=== PATIENT | male | born 1960 | race Caucasian/White ===

== ENCOUNTER 2021-08-06 10:53 | Emergency (ER) | payer OTHER, SELFPAY ==
--- NOTE | ~2021-08-06 | XR_ITS ---
EXAMINATION: XR chest 2V DATE: 08/06/2021 11:22 INDICATION: Cough and congestion TECHNIQUE: PA and lateral views of the chest are obtained. COMPARISON: 04/26/2019 FINDINGS: The lungs are free of acute opacities. Surgical changes are noted in the right upper lung z one and at the right hilum. There is no pleural effusion or pneumothorax. The cardiomediastinal silho uette is normal. There is mild thoracic spondylosis. IMPRESSION: 1. No acute cardiopulmonary abnormality. Reviewed, dictated and finalized at location B. T DISTILLER
--- NOTE | 2021-08-06 10:54 | ED.URI ---
HPI - URI/Sore Throat General Chief Complaint: Upper Respiratory Infection Stated Complaint: Cough/Chest Congestion Time Seen by Provider: 08/06/21 10:54 Source: patient and RN notes reviewed History of Present Illness HPI Narrative: Patient is a 60-year-old male who presents the urgent care with complaints of chest congestion and cough. Patient states that he has been using his inhaler for his chronic COPD however he believes it may be . Patient denies of any increase shortness of breath. Denies of any new onset of cough. Patient states that he is missing work and his boss is not happy . Patient denies of any fever, nausea, vomiting, sore throat. Denies of any chest pain. Denies of any exposures to strep or Covid. Patient has not had the Covid vaccine. No other acute complaints. No acute distress noted. Patient will have the plan of care. Some parts of this dictation were generated by voice recognition software and may contain typographical and/or grammatical inaccuracies. Related Data Home Medications Medication Instructions Recorded Confirmed albuterol mcg INHALATION 08/06/21 warfarin 08/06/21 Allergies Allergy/AdvReac Type Severity Reaction Status Date / Time acetaminophen [From Vicodin] Allergy Rash Verified 08/06/21 11:11 amoxicillin Allergy Rash Verified 08/06/21 11:10 hydrocodone [From Vicodin] Allergy Rash Verified 08/06/21 11:11 shellfish derived Allergy Rash Verified 08/06/21 11:11 Review of Systems Review of Systems: CONSTITUTIONAL: Denies fever, chills, or sweats. EYES: Denies visual changes, redness, or discharge. ENT: Denies rhinorrhea, congestion, sore throat, or otalgia. CARDIOVASCULAR: Denies chest pain, palpitations, or edema. RESPIRATORY: Reports of acute on chronic cough without dyspnea. Reports of chest congestion GASTROINTESTINAL: Denies abdominal pain, nausea, vomiting, or diarrhea. GENITOURINARY: Denies dysuria or hematuria. SKIN: Denies rash or itching. MUSCULOSKELETAL: Denies back pain, joint pain, or myalgia. NEUROLOGIC: Denies headache, numbness, or weakness. All other systems reviewed are negative, except as documented in HPI. PMFSH Comments At the time of my signature, I reviewed and agree with the nursing past medical, surgical, social, and family history. There is no relevant family history pertinent to the patient complaint. Exam Narrative: GENERAL: This is a well-nourished, well-developed patient, in no apparent distress. HEAD: normocephalic, atraumatic. EYES: PERRL. Sclera clear/white. Vision is grossly intact. EARS: External ears normal, auditory canals clear and without drainage, TMs normal without perforation. Hearing grossly intact. NOSE: External nose normal with no obvious nasal discharge, nares without redness, clear rhinorrhea. THROAT: Mucous membranes moist.. Moderate erythema noted posterior pharynx with moderate postnasal drainage. NECK: Neck supple CARDIOVASCULAR: Regular rate and rhythm without murmurs, gallops, or rubs. RESPIRATORY: Clear to auscultation. Breath sounds equal bilaterally. No wheezes, rales, or rhonchi. SKIN: warm, intact with no suspicious lesions or rash, good texture and turgor. NEURO: awake, alert, and oriented to person, place and time. There were no obvious focal neurologic abnormalities. EXTREMITIES: No clubbing, cyanosis, or edema. Course Vital Signs Vital signs: Vital Signs Temperature 98.7 F 08/06/21 11:13 Pulse Rate 106 H 08/06/21 11:13 Respiratory Rate 20 08/06/21 11:13 Blood Pressure 133/90 08/06/21 11:13 Pulse Oximetry 98 08/06/21 11:13 Temperature 98.7 F 08/06/21 11:13 Pulse Rate 106 H 08/06/21 11:13 Respiratory Rate 20 08/06/21 11:13 Blood Pressure 133/90 08/06/21 11:13 Pulse Oximetry 98 08/06/21 11:13 Reviewed MDM - URI/Sore Throat MDM Narrative Medical decision making narrative: Reviewed x-ray results with the patient. He is aware that x-ray was negative for any abno
[2021-08-06 11:13] VITALS: BP 133/90; PULSE 106; RESP 20; TEMP 37.1; O2SAT 98
== END 2021-08-06 12:20 | disposition home or self-care (01) ==
PROVIDERS: Emergency Provider Nurse Practitioner Family
DX: J44.9 Chronic obstructive pulmonary disease, unspecified (principal)
CPT/HCPCS: 71046; 99213; G0463

== ENCOUNTER 2023-01-10 15:48 | Emergency (ER) | payer OTHER, SELFPAY ==
--- NOTE | ~2023-01-10 | XR_ITS ---
[XR ribs RT 2V w CXR 2V ] INDICATION: Right rib pain status post fall TECHNIQUE: Frontal projection of the upper right ribs, frontal projection of the lower right ribs, ob lique projection of all the right ribs, frontal inspiratory chest x-ray for interpretation. FINDINGS: There are surgical changes in the right hilum and right upper thorax. There is evidence for chronic granulomatous disease. There are no displaced rib fractures identified. There are no soft t issue abnormality seen. The lungs are clear. There is an IVC filter present in the abdomen. Nonspec ific air-fluid levels are present in the upper abdomen. IMPRESSION: 1:No acute displaced rib fractures. Reviewed, dictated and finalized at location A.
--- NOTE | ~2023-01-10 | CT_ITS ---
EXAMINATION: 1. CT facial & cervical spine wo DATE: 01/10/2023 17:08 INDICATION: Head injury with right-sided jaw pain post fall TECHNIQUE: 1. Computed tomography (CT) of the maxillofacial region and of the cervical spine were performed with out intravenous contrast. Sagittal and coronal reconstructions of both regions were obtained. Automat ed exposure control and iterative reconstruction technique were employed. The dose-length product was 387.94 mGy-cm. COMPARISON: None. FINDINGS: Maxillofacial CT: Normal alignment at the bilateral temporomandibular joints. No maxillofacial fractures. Specifically the mandible, nasal bones, zygomatic arches and lowe of the orbits and paranasal sinuses are intact. Orbits are normal. Mild mucosal thickening in the left maxillary, left frontal and bilateral ethmoid sinuses. Dental Nadira along the anterior left maxillary central incisor. Maxillofacial soft tissues are unremarkable. Cervical spine CT: Alignment is normal. Vertebral body heights are normal. No fracture. Mild to moderate disc height los s at C5-C6 and C6-7 and mild disc height loss at C4-C5. Posterior disc ossified complexes and moderat e to severe bilateral uncovertebral osteoarthritis at C5-C6 and C6-7 resulting in mild central canal and bilateral mild neural foraminal stenosis at both levels. Cervical soft tissues are unremarkable. Severe emphysema with biapical pleural-parenchymal scarring, left greater than right. Few scattered c alcified pulmonary nodules consistent with old granulomatous disease. IMPRESSION: 1. No acute maxillofacial or cervical osseous abnormality. 2. Mild to moderate cervical spondylosis. 3. Severe emphysema. Reviewed, dictated and finalized at location A.
--- NOTE | ~2023-01-10 | CT_ITS ---
EXAMINATION: CT brain wo con DATE: 01/10/2023 17:01 INDICATION: Head trauma. TECHNIQUE: Computed tomography (CT) of the head was performed without intravenous contrast. The dose- length product was 605.33 mGy-cm. Automated exposure control and iterative reconstruction technique w ere employed. COMPARISON: CT dated 05/22/2009 FINDINGS: Brain parenchymal volume is normal for age. No ventriculomegaly or midline shift. Basilar c isterns are patent. No acute intracranial hemorrhage, infarction, mass or mass effect. Normal swartz-wh ite differentiation. There is intracranial atherosclerosis. There is mucosal thickening of the ethmoi d and frontal sinuses. Mastoids are pneumatized. No depressed skull fractures. IMPRESSION: 1. No acute intracranial abnormality. 2: Mild sinus disease. Reviewed, dictated and finalized at location A.
--- NOTE | ~2023-01-10 | XR_ITS ---
XR femur RT min 2V 01/10/2023 16:57 INDICATION: Right leg pain PROCEDURE: 2 views right femur COMPARISON: 01/10/2023 FINDINGS: Fracture, dislocation or subluxation is not identified. The soft tissues appear within norm al limits. No foreign bodies are identified. IMPRESSION: 1: NO ACUTE BONE OR JOINT ABNORMALITY IDENTIFIED. Reviewed, dictated and finalized at location A.
--- NOTE | ~2023-01-10 | XR_ITS ---
XR hip RT 2V w AP pelvis 01/10/2023 16:57 INDICATION: Right hip pain after fall PROCEDURE: 3 views right hip including AP pelvis COMPARISON: FINDINGS: Fracture, dislocation or subluxation is not identified. Pelvic rings are intact. The soft t issues appear within normal limits. No foreign bodies are identified. IMPRESSION: 1: NO ACUTE BONE OR JOINT ABNORMALITY IDENTIFIED. Reviewed, dictated and finalized at location A.
[2023-01-10 15:54] VITALS: BP 135/77; PULSE 89; RESP 18; TEMP 37.2; O2SAT 98
[2023-01-10] MEDS: MORPHINE SULFATE (*CRX) 2 MG/ML INJ IV PUSH (16:34)
[2023-01-10 16:47] LABS: Basophils Absolute Auto 0.1 K/mm3 (0.0-0.1); Basophils Percent Auto 0.6 % (0.2-1.2); Eosinophils Absolute Auto 0.2 K/mm3 (0-0.3); Eosinophils Percent Auto 1.7 % (0-4.4); Hematocrit 47.6 % (42.0-52.0); Hemoglobin 16.4 g/dL (14.0-18.0); Immature Granulocyte Absolute 0.03 K/mm3 (0.00-0.031); Immature Granulocyte Percent A 0.3 % (0-0.5); Lymphocytes Absolute Auto 1.38 K/mm3 (0.9-3.2); Mean Corpuscular HGB Conc 34.5 g/dl (32-36); Mean Corpuscular Hemoglobin 33.5 pg (26-34); Mean Corpuscular Volume 97.3 fl (80-100); Mean Platelet Volume 8.9 fl (7.4-10.4); Monocytes Absolute Auto 0.7 K/mm3 (0.1-0.6); Monocytes Percent Auto 6.3 % (2.6-8.5); Neutrophils Absolute Auto 8.3 K/mm3 (1.3-6.7); Neutrophils Percent Auto 78.1 % (45.5-73.1); Platelet Count Result 186 k/mm3 (150-375); Red Blood Count 4.89 M/mm3 (4.6-6.20); Red Cell Distribution Width 14.4 % (11.5-14.5); White Blood Count 10.6 K/mm3 (4.5-10.0)
[2023-01-10 16:57] LABS: INR 3.1; Prothrombin Time 30.9 Seconds (11.1-14.7)
[2023-01-10 16:58] LABS: Partial Thromboplastin Time 40.4 SECONDS (22.3-36.8)
[2023-01-10 16:59] LABS: Alanine Aminotransferase 20 U/L (6-50); Albumin Level 4.2 g/dL (3.5-5.1); Alkaline Phosphatase 75 U/L (38-126); Anion Gap 8 mmol/L (8-16); Aspartate Amino Transferase 30 U/L (17-59); Bilirubin,Total 0.5 mg/dL (0.2-1.3); Blood Urea Nitrogen 13 mg/dL (9-20); Calcium 8.6 mg/dL (8.4-10.2); Carbon Dioxide 19 mmol/L (22-30); Chloride 105 mmol/L (98-107); Estimated CRCL calculation 76 ml/min; Estimated Glomerular Filt Rate > 60; Glucose 122 mg/dL (65-110); Potassium 3.8 mmol/L (3.4-5.0); Sodium 132 mmol/L (137-145)
[2023-01-10] MEDS: fentaNYL CITRATE INJ (*CRX) 100 MCG/2 ML VIAL 50 MCG IV PUSH (18:10)
--- NOTE | 2023-01-10 18:17 | ED.FALL ---
HPI - Fall General Chief Complaint: Fall Stated Complaint: fall off semi, R jaw R hip and R leg pain Time Seen by Provider: 01/10/23 15:59 History of Present Illness HPI Narrative: Patient is a 62-year-old male who presents ER with pain status post fall. He is walking on his semi when he fell down 4 feet striking his right thigh/chest wall/jaw head while he fell. He is anticoagulated on Coumadin due to history of factor V Leiden mutation causing PE and DVT in the past. He had no loss of consciousness. No fevers or chills or sweats. He has some pain with ambulating but can walk with a limp. Patient feels like he can close his jaw and his teeth line up appropriately. He does have pain with chewing. Related Data Home Medications Medication Instructions Recorded Confirmed albuterol 90 mcg/actuation aerosol mcg inhalation 08/06/21 inhaler warfarin 2 mg tablet 08/06/21 Allergies Allergy/AdvReac Type Severity Reaction Status Date / Time acetaminophen [From Vicodin] Allergy Rash Verified 01/10/23 16:11 amoxicillin Allergy Rash Verified 01/10/23 16:11 hydrocodone [From Vicodin] Allergy Rash Verified 01/10/23 16:11 shellfish derived Allergy Rash Verified 01/10/23 16:11 Sulfa (Sulfonamide Allergy Rash Verified 01/10/23 16:11 Antibiotics) Review of Systems Review of Systems: All systems reviewed & are unremarkable except as noted in HPI and below Constitutional: Constitutional: Denies chills, Denies fatigue and Denies fever(s) Eyes: Eyes: Denies change in vision ENT: Comments: Right jaw pain Cardiovascular: Cardiovascular: Denies chest pain, Denies rapid heart rate and Denies radiating jaw, neck or arm pain Comments: Right chest wall pain Respiratory: Respiratory: Denies cough and Denies dyspnea Gastrointestinal: Gastrointestinal: Denies abdominal pain, Denies nausea and Denies vomiting Musculoskeletal: Musculoskeletal: Denies back pain, Reports arthralgias (Right hip pain) and Denies joint swelling Comments: Right thigh pain Integumentary/Breasts: Skin/Breast: Reports erythema and Denies rash Comments: Abrasion right thigh PMFSH Past Medical History Medical History (Updated 01/10/23 @ 18:23 by Jose Sarkar MD) COPD (chronic obstructive pulmonary disease) DVT (deep venous thrombosis) Factor V Leiden mutation Pulmonary embolism Social History Social History (Updated 01/10/23 @ 18:21 by Jose Sarkar MD) Social History: History of tobacco abuse Exam Narrative: GENERAL: Well-appearing, well-nourished, and in no acute distress. HEAD: Normocephalic, atraumatic. ENT: Mucous membranes moist. Swelling and tenderness to right lower jaw. Normal dentition. NECK: Supple. CHEST: Clear to auscultation. No respiratory distress. Tender palpation right lateral chest wall infra axillary without bruising. HEART: Regular rate and rhythm. Normal peripheral pulses. ABDOMEN: Soft, nontender, nondistended. EXTREMITIES: Normal range of motion. No edema. SKIN: Warm, dry, no rash. Abrasion right mid/lateral thigh. NEURO: NAlert and oriented x3. PSYCH: Normal mood and affect. Course Course Emergency Course: Patient informed of imaging results. No improvement in pain with morphine so he will be given some fentanyl. Reports he cannot take Vicodin but is willing to take Percocet at home. He has been advised not to operate his semi while taking Percocet and he is verbalized understanding of this. Vital Signs Vital signs: Vital Signs Temperature 99 F 01/10/23 15:54 Pulse Rate 89 01/10/23 15:54 Respiratory Rate 18 01/10/23 15:54 Blood Pressure 135/77 01/10/23 15:54 Pulse Oximetry 98 01/10/23 15:54 Oxygen Delivery Room Air 01/10/23 15:54 Temperature 99 F 01/10/23 15:54 Pulse Rate 89 01/10/23 15:54 Respiratory Rate 18 01/10/23 15:54 Blood Pressure 135/77 01/10/23 15:54 Pulse Oximetry 98 01/10/23 15:54 Oxygen Delivery Room Air 01/10/23 15:54
[2023-01-10 18:18] VITALS: BP 158/96; PULSE 75; RESP 18; O2SAT 99
== END 2023-01-10 18:49 | disposition home or self-care (01) ==
LOC: ANHED 18:34
PROVIDERS: Emergency Provider Emergency Medicine
DX: S20.211A Contusion of right front wall of thorax, initial encounter (principal); S00.83XA Contusion of other part of head, initial encounter; S70.311A Abrasion, right thigh, initial encounter; D68.51 Activated protein C resistance; J43.9 Emphysema, unspecified; Z86.718 Personal history of other venous thrombosis and embolism; Z86.711 Personal history of pulmonary embolism; Z87.891 Personal history of nicotine dependence; Z79.01 Long term (current) use of anticoagulants; M47.812 Spondylosis without myelopathy or radiculopathy, cervical region; J32.9 Chronic sinusitis, unspecified; W17.89XA Other fall from one level to another, initial encounter
CPT/HCPCS: 36415; 70450; 70486; 71046; 71100; 72125; 73502; 73552; 80053; 85025; 85610; 85730; 96374; 96375; 99284; J2270; J3010

== ENCOUNTER 2023-05-02 10:23 | Emergency (ER) | payer OTHER, SELFPAY ==
--- NOTE | ~2023-05-02 | XR_ITS ---
EXAMINATION: XR chest 2V DATE: 05/02/2023 10:43 INDICATION: Cough. TECHNIQUE: Frontal and lateral views of the chest were obtained. COMPARISON: Chest 2 views 01/10/2023, chest CT 02/10/2012 FINDINGS: There are lucencies in the lungs, consistent with emphysema. There are staple lines in righ t lung. There is mild scarring in right midlung zone and at the lung apices. Calcified left lung nodu les are consistent with old granulomatous disease. No pleural effusion or pneumothorax. The heart siz e is normal. There is mild chronic anterior wedging of T12 vertebral body. IMPRESSION: 1. Emphysema. 2. Mild scarring in right midlung zone and at the lung apices. Reviewed, dictated and finalized at location A.
[2023-05-02 10:28] VITALS: BP 138/76; PULSE 109; RESP 20; TEMP 36.7; O2SAT 100
--- NOTE | 2023-05-02 10:44 | ED.URI ---
HPI - URI/Sore Throat General Chief Complaint: Upper Respiratory Infection Stated Complaint: Cough Time Seen by Provider: 05/02/23 10:44 Source: patient Mode of arrival: ambulatory Limitations: no limitations History of Present Illness HPI Narrative: 62-year-old male with history of emphysema presents with complaint of cough. Reports chest tightness but no shortness breath. Difficult to take deep breath. Patient has albuterol inhaler that he normally uses approximately once a month but has been using more often for the past several days. Patient smokes 1 pack of cigarettes a day. Reports that he was at work 5 days ago and sway being dust was very bad. This is when he started coughing. Afebrile. All systems reviewed and negative except as noted above. Related Data Home Medications Medication Instructions Recorded Confirmed warfarin 2 mg tablet 3 mg PO DAILY 08/06/21 05/02/23 Allergies Allergy/AdvReac Type Severity Reaction Status Date / Time acetaminophen [From Vicodin] Allergy Rash Verified 05/02/23 10:40 amoxicillin Allergy Rash Verified 05/02/23 10:40 hydrocodone [From Vicodin] Allergy Rash Verified 05/02/23 10:40 shellfish derived Allergy Rash Verified 05/02/23 10:40 Sulfa (Sulfonamide Allergy Rash Verified 05/02/23 10:40 Antibiotics) Review of Systems Review of Systems: CONSTITUTIONAL: Denies fever, chills, or sweats. EYES: Denies visual changes, redness, or discharge. ENT: Denies rhinorrhea, congestion, sore throat, or otalgia. CARDIOVASCULAR: Denies chest pain, palpitations, or edema. RESPIRATORY: Reports cough, chest tightness. Denies dyspnea. GASTROINTESTINAL: Denies abdominal pain, nausea, vomiting, or diarrhea. GENITOURINARY: Denies dysuria or hematuria. SKIN: Denies rash or itching. MUSCULOSKELETAL: Denies back pain, joint pain, or myalgia. NEUROLOGIC: Denies headache, numbness, or weakness. PSYCHIATRIC: Denies anxiety or depression. All other systems reviewed are negative, except as documented in HPI. [facility] Past Medical History Medical History (Updated 05/02/23 @ 11:31 by Yulissa Romero NP) COPD (chronic obstructive pulmonary disease) DVT (deep venous thrombosis) Factor V Leiden mutation Pulmonary embolism Social History Social History (Updated 01/10/23 @ 18:21 by Jose Sarkar MD) Social History: History of tobacco abuse Comments At time of signature, agree with nursing past medical, surgical, social and family history. There is no relevant family history pertinent to the presenting complaint. Exam Narrative: GENERAL: This is a well-nourished, well-developed patient, in no apparent distress. HEAD: normocephalic, atraumatic. EYES: PERRL. Sclera clear/white. Vision is grossly intact. EARS: External ears normal, auditory canals clear and without drainage, TMs normal without perforation. Hearing grossly intact. NOSE: External nose normal with no obvious nasal discharge, nares without redness, no rhinorrhea. THROAT: Mucous membranes moist, posterior pharynx clear. NECK: Neck supple, non-tender without lymphadenopathy, masses or thyromegaly. CARDIOVASCULAR: Regular rate and rhythm without murmurs, gallops, or rubs. RESPIRATORY: Decreased throughout all lung matias. No wheezes, rales, or rhonchi. SKIN: warm, Dry, intact with no suspicious lesions or rash, good texture and turgor. NEURO: awake, alert, and oriented to person, place and time. There were no obvious focal neurologic abnormalities. EXTREMITIES: No joint tenderness, effusion, or edema noted. Course Course Level of Care: Express Care Visit Reevaluation(s) Reevaluation #1: pt unable to complete entire breathing treatment. stated that it wore him out . did report chest tightness improved and easier to take full breath. Vital Signs Vital signs: Vital Signs Temperature 36.7 C 05/02/23 10:28 Pulse Rate 109 H 05/02/23 10:28 Respiratory Rate 20 05/02/23 10:28 Blood Pressure 138/76
[2023-05-02] MEDS: predniSONE 20 MG TABLET 40 MG PO (11:00)
[2023-05-02] MEDS: IPRATROPIUM BR 0.02% INH SOLN 0.5 MG/2.5 ML VIAL INHALATION (11:01)
[2023-05-02] MEDS: ALBUTEROL SULFATE NEB 2.5 MG/3 ML INH INHALATION (11:01)
[2023-05-02 11:25] VITALS: PULSE 82; RESP 20; O2SAT 99
== END 2023-05-02 11:33 | disposition home or self-care (01) ==
PROVIDERS: Emergency Provider Nurse Practitioner Family
DX: J43.9 Emphysema, unspecified (principal); R05.1 Acute cough; J44.9 Chronic obstructive pulmonary disease, unspecified; D68.51 Activated protein C resistance; Z86.718 Personal history of other venous thrombosis and embolism; Z86.711 Personal history of pulmonary embolism
CPT/HCPCS: 71046; 94640; 99213; G0463; J7512

== ENCOUNTER 2023-05-05 17:05 | Emergency (ER) | payer OTHER, SELFPAY ==
--- NOTE | ~2023-05-05 | XR_ITS ---
EXAMINATION: XR chest 2V Exam Date/Time: 05/05/2023 18:30 CDT HISTORY: cough and SOB Comparison: 05/02/2023. RESULT: Lines, tubes, and devices: Suture lines in the right hemithorax. Lungs and pleura: Clear. Cardiomediastinal silhouette: Stable. Other: No acute osseous or upper abdominal finding. IMPRESSION: No acute cardiopulmonary process. Reviewed, dictated and finalized at location K.
[2023-05-05 17:09] VITALS: BP 136/82; PULSE 106; RESP 16; TEMP 36.7; O2SAT 96
--- NOTE | 2023-05-05 17:14 | ECG_ITS ---
Measurements Intervals [place] Rate: 99 P: 74 AK: 141 QRS: -16 QRSD: 106 T: 65 QT: 342 QTc: 440 Interpretive Statements SINUS RHYTHM POSSIBLE LEFT ATRIAL ENLARGEMENT [-0.1mV P WAVE IN V1/V2] NO PREVIOUS ECG AVAILABLE FOR COMPARISON Electronically Signed On 05-06-2023 14:23:17 CDT by Krystyna Clarke M.D.
[2023-05-05 17:41] LABS: Basophils Percent Auto 0.2 % (0.2-1.2); Hematocrit 48.3 % (42.0-52.0); Hemoglobin 16.7 g/dL (14.0-18.0); Immature Granulocyte Absolute 0.04 K/mm3 (0.00-0.031); Immature Granulocyte Percent A 0.4 % (0-0.5); Lymphocytes Absolute Auto 0.37 K/mm3 (0.9-3.2); Lymphocytes Percent Auto 3.6 % (18.3-44.2); Mean Corpuscular HGB Conc 34.6 g/dl (32-36); Mean Corpuscular Hemoglobin 33.9 pg (26-34); Mean Corpuscular Volume 98.2 fl (80-100); Mean Platelet Volume 8.5 fl (7.4-10.4); Monocytes Absolute Auto 0.2 K/mm3 (0.1-0.6); Monocytes Percent Auto 1.6 % (2.6-8.5); Neutrophils Absolute Auto 9.8 K/mm3 (1.3-6.7); Neutrophils Percent Auto 94.2 % (45.5-73.1); Platelet Count Result 156 k/mm3 (150-375); Red Blood Count 4.92 M/mm3 (4.6-6.20); Red Cell Distribution Width 14.2 % (11.5-14.5); White Blood Count 10.4 K/mm3 (4.5-10.0)
[2023-05-05 17:50] LABS: Alanine Aminotransferase 22 U/L (6-50); Albumin Level 4.3 g/dL (3.5-5.1); Alkaline Phosphatase 73 U/L (38-126); Anion Gap 14 mmol/L (8-16); Aspartate Amino Transferase 28 U/L (17-59); Bilirubin,Total 0.3 mg/dL (0.2-1.3); Blood Urea Nitrogen 14 mg/dL (9-20); Calcium 9.2 mg/dL (8.4-10.2); Carbon Dioxide 17 mmol/L (22-30); Chloride 105 mmol/L (98-107); Estimated CRCL calculation 62 ml/min; Estimated Glomerular Filt Rate > 60; Glucose 169 mg/dL (65-110); Potassium 3.9 mmol/L (3.4-5.0); Sodium 136 mmol/L (137-145)
[2023-05-05 18:22] VITALS: O2SAT 97
--- NOTE | 2023-05-05 19:04 | ED.GENADULT ---
HPI - General Adult General Chief complaint: Shortness of Breath/Dyspnea Stated complaint: cough Time Seen by Provider: 05/05/23 18:47 Source: patient Mode of arrival: ambulatory Limitations: no limitations History of Present Illness HPI narrative: This is a 62-year-old male with PMH of COPD who presents to the ED with chief complaint of shortness of breath and cough for the past 5 days. He was seen in urgent care and given steroids, albuterol but was told he did not have a pneumonia with a negative chest x-ray. Patient states that he is still having a productive cough with clear sputum. He reports a lot of congestion and sinus pressure as well. States he is not overly short of breath but does feel like he wheezes at times. Denies fevers, chills chest pain, leg swelling, abdominal pain, nausea, vomiting, urinary problems. Related Data Home Medications Medication Instructions Recorded Confirmed warfarin 2 mg tablet 3 mg PO DAILY 08/06/21 05/02/23 Allergies Allergy/AdvReac Type Severity Reaction Status Date / Time acetaminophen [From Vicodin] Allergy Rash Verified 05/05/23 17:13 amoxicillin Allergy Rash Verified 05/05/23 17:13 hydrocodone [From Vicodin] Allergy Rash Verified 05/05/23 17:13 shellfish derived Allergy Rash Verified 05/05/23 17:13 Sulfa (Sulfonamide Allergy Rash Verified 05/05/23 17:13 Antibiotics) Review of Systems Review of Systems: All systems as dictated in [facility] Past Medical History Medical History (Updated 05/06/23 @ 00:05 by Malinda Bronson) COPD (chronic obstructive pulmonary disease) DVT (deep venous thrombosis) Factor V Leiden mutation Pulmonary embolism Social History Social History (Updated 01/10/23 @ 18:21 by Jose Sarkar MD) Social History: History of tobacco abuse Exam Narrative: GENERAL: Well-appearing, well-nourished, and in no acute distress. HEAD: Normocephalic, atraumatic. EYES: PERRLA and EOMI. ENT: Nares clear, no rhinorrhea or epistaxis. Mucous membranes moist. Oropharynx without tonsillar hypertrophy exudate or other lesions. NECK: Supple. No adenopathy or masses. CHEST: No respiratory distress. No accessory muscle use. No rales heard. Faint end expiratory wheezes. Sats 97% on room air. Speaking in full sentences. HEART: Regular rate and rhythm. No murmur heard. Normal peripheral pulses. ABDOMEN: Soft, nontender, nondistended, normal active bowel sounds. MSK: Normal range of motion. No edema. SKIN: Warm, dry, no rash. NEURO: Alert and oriented x3. No focal deficits. PSYCH: Normal mood and affect. Course Course Emergency Course: Reevaluation 2025: Did well with walking desaturation test. Did not go below 95%. Vital Signs Vital signs: Vital Signs Temperature 98.1 F 05/05/23 17:09 Pulse Rate 106 H 05/05/23 17:09 Respiratory Rate 16 05/05/23 17:09 Blood Pressure 136/82 05/05/23 17:09 Pulse Oximetry 96 05/05/23 17:09 Oxygen Delivery Room Air 05/05/23 17:09 Temperature 98.1 F 05/05/23 17:09 Pulse Rate 81 05/05/23 21:43 Respiratory Rate 15 05/05/23 21:43 Blood Pressure 147/90 H 05/05/23 21:43 Pulse Oximetry 96 05/05/23 21:43 Oxygen Delivery Room Air 05/05/23 18:22 Medical Decision Making MDM Narrative Medical decision making narrative: This is a 62-year-old male who presents to the ED with chief complaint of cough, congestion and shortness of breath for the past 5 days. Vitals show initial slight tachycardia but this normalized over the course of his visit. Exam reveals some end expiratory wheezes but otherwise respiratory exam is intact. Satting 97% on room air. He did very well with the walking desaturation test and did not go below 95% on room air. Chest x-ray is negative. Lab work reveals slight leukocytosis with apparent left shift. CMP is largely unremarkable. Symptoms and presentation are consistent with COPD exacerbation/pneumonia. This may be due to viral up
[2023-05-05 19:31] VITALS: BP 138/88; PULSE 88; RESP 14; O2SAT 95
[2023-05-05] MEDS: levoFLOXacin 750 MG/D5W 150 ML 750 MG/150 ML BAG 100 MG IVPB (19:35)
[2023-05-05] MEDS: methylPREDNISolone SOD SUCC 125 MG VIAL IV PUSH (19:36)
[2023-05-05 19:55] LABS: D Dimer < 0.27 ug/mL (<0.48)
[2023-05-05 21:43] VITALS: BP 147/90; PULSE 81; RESP 15; O2SAT 96
--- NOTE | 2023-05-13 06:17 | PC.NURSE ---
LEVOFLOXACIN STOPPED BY THIS RN ON 05/05/23 @2015
== END 2023-05-05 21:45 | disposition home or self-care (01) ==
PROVIDERS: Student in an Organized Health Care Education/Training Program; Emergency Provider Physician Assistant
DX: J44.1 Chronic obstructive pulmonary disease with (acute) exacerbation (principal); D68.51 Activated protein C resistance; Z86.718 Personal history of other venous thrombosis and embolism; Z86.711 Personal history of pulmonary embolism; R94.31 Abnormal electrocardiogram [ECG] [EKG]
CPT/HCPCS: 36415; 71046; 80053; 85025; 85380; 93005; 96365; 96375; 99284; J1956; J2930

== ENCOUNTER 2023-11-17 11:33 | Emergency (ER) | payer OTHER, SELFPAY ==
[2023-11-17 11:50] VITALS: BP 136/79; PULSE 84; RESP 18; TEMP 36.7; O2SAT 98
--- NOTE | 2023-11-17 11:53 | ED.URI ---
HPI - URI/Sore Throat General Chief Complaint: Upper Respiratory Infection <Dory Valle APRN - Last Filed: 11/17/23 14:48> Stated Complaint: Cough <Dory Valle APRN - Last Filed: 11/17/23 14:48> Time Seen by Provider: 11/17/23 11:53 <Dory Valle APRN - Last Filed: 11/17/23 14:48> Source: patient, RN notes reviewed and old records reviewed <Dory Valle APRN - Last Filed: 11/17/23 14:48> Mode of arrival: ambulatory <Dory Valle APRN - Last Filed: 11/17/23 14:48> Limitations: no limitations <Dory Valle APRN - Last Filed: 11/17/23 14:48> History of Present Illness HPI Narrative: 63-year-old male to [facility] with complaint of cough for nearly 2 weeks. Patient endorses history emphysema, COPD, multiple MIs, 2 DVTs, 2 PEs, factor 5, and 1 [id number] smoker. Patient states cough has been productive occasionally with white sputum with. Patient denies fever, chest pain, dizziness, shortness of breath. Patient has attempted to treat with [id number] cold medication with no relief. Patient able to tolerate fluids by mouth. <Dory Valle APRN - Last Filed: 11/17/23 14:48> Related Data Home Medications: Home Medications Medication Instructions Recorded Confirmed warfarin 2 mg tablet 3 mg PO DAILY 08/06/21 11/17/23 <Dory Valle APRN - Last Filed: 11/17/23 14:48> Allergies/Adverse Reactions: Allergies Allergy/AdvReac Type Severity Reaction Status Date / Time acetaminophen [From Vicodin] Allergy Rash Verified 05/05/23 17:13 amoxicillin Allergy Rash Verified 05/05/23 17:13 hydrocodone [From Vicodin] Allergy Rash Verified 05/05/23 17:13 shellfish derived Allergy Rash Verified 05/05/23 17:13 Sulfa (Sulfonamide Allergy Rash Verified 05/05/23 17:13 Antibiotics) <Dory Valle APRN - Last Filed: 11/17/23 14:48> Review of Systems Review of Systems: All systems reviewed & are unremarkable except as noted in HPI and below <Dory Valle APRN - Last Filed: 11/17/23 14:48> Constitutional: Constitutional: Reports no additional constitutional complaints, Denies body ache(s), Denies chills, Denies fatigue and Denies headache(s) <Dory Valle APRN - Last Filed: 11/17/23 14:48> Eyes: Eyes: Reports no additional eye complaints <Dory Valle APRN - Last Filed: 11/17/23 14:48> ENT: Reports system reviewed and no additional complaints, except as documented, Denies ear discharge, Denies headache(s) and Reports post nasal drip <Dory Valle APRN - Last Filed: 11/17/23 14:48> Cardiovascular: Cardiovascular: Reports no additional cardiovascular complaints, Denies chest pain and Denies dyspnea <Dory Valle APRN - Last Filed: 11/17/23 14:48> Respiratory: Respiratory: Reports no additional respiratory complaints, Reports cough, Denies excessive phlegm production, Denies pain on inspiration, Denies pain with cough and Denies dyspnea <Dory Valle APRN - Last Filed: 11/17/23 14:48> Musculoskeletal: Musculoskeletal: Reports no additional musculoskeletal complaints <Dory Valle APRN - Last Filed: 11/17/23 14:48> Neurologic: Reports system reviewed and no additional complaints, except as documented <Dory Valle APRN - Last Filed: 11/17/23 14:48> Psychiatric: Psychiatric: Reports no additional psychiatric complaints <Dory Valle APRN - Last Filed: 11/17/23 14:48> [facility] Past Medical History Medical History: Medical History (Updated 11/17/23 @ 12:12 by Dory Valle APRN) COPD (chronic obstructive pulmonary disease) DVT (deep venous thrombosis) Factor V Leiden mutation Pulmonary embolism <Dory Valle APRN - Last Filed: 11/17/23 14:48> Social History Social History: Social History (Updated 01/10/23 @ 18:21 by Jose Sarkar MD) Social History: History of tobacco
== END 2023-11-17 12:17 | disposition home or self-care (01) ==
PROVIDERS: Emergency Provider Nurse Practitioner Family
DX: J40 Bronchitis, not specified as acute or chronic (principal); J06.9 Acute upper respiratory infection, unspecified; J43.9 Emphysema, unspecified; I25.2 Old myocardial infarction; D68.51 Activated protein C resistance; F17.210 Nicotine dependence, cigarettes, uncomplicated; Z79.01 Long term (current) use of anticoagulants; Z86.711 Personal history of pulmonary embolism; Z86.718 Personal history of other venous thrombosis and embolism
CPT/HCPCS: 99213; G0463

== ENCOUNTER 2024-01-16 18:00 | Outpatient (RCR) | payer OTHER, SELFPAY | END 2024-01-19 17:01 | disposition home or self-care (01) | LOC: ANHCPREHAB 18:00 | PROVIDERS: Visit Provider Internal Medicine | DX: I25.2 Old myocardial infarction (principal); Z95.5 Presence of coronary angioplasty implant and graft | CPT/HCPCS: 93798 ==

== ENCOUNTER 2024-12-06 08:29 | Emergency (ER) | payer OTHER, SELFPAY ==
--- NOTE | ~2024-12-06 | XR_ITS ---
EXAMINATION: [id number] DATE: 12/06/2024 09:12 INDICATION: Right rib pain. TECHNIQUE: A frontal view of the chest and 2 views on 4 radiographs of the right ribs were obtained. COMPARISON: Chest 2 views 10/04/2024, right rib radiographs 01/10/2023 FINDINGS: There is mild scarring at the lung apices. There are staple lines in right lung. Calcified lung nodules are consistent with old granulomatous disease. No pleural effusion or pneumothorax. The heart size is normal. There are old healed fractures of right third-fifth ribs. There is a filter in the inferior vena cava. IMPRESSION: 1. Stable mild scarring at the lung apices. 2. No acute rib fracture. Reviewed, dictated and finalized at location B.
[2024-12-06 08:34] VITALS: BP 127/71; PULSE 83; RESP 20; TEMP 36.4; O2SAT 100
--- NOTE | 2024-12-06 08:43 | ED_ITS ---
HPI - General Adult General Chief complaint: Chest Pain Stated complaint: right side chest pain Time Seen by Provider: 12/06/24 08:43 Source: patient, RN notes reviewed and old records reviewed Mode of arrival: ambulatory Limitations: no limitations History of Present Illness HPI narrative: 64-year-old male presents to the [facility] with complaints of right lower lateral to anterior rib discomfort. 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 Got worse 2 days ago when he had some increased pain. Pain is worse with movement, twisting and palpation. States when he rolls over in bed the pain is worse. denies any nausea or vomiting. Denies any shortness of breath. No pain when just sitting still. Patient reports that he is compliant with his medications Related Data Home Medications ?Medication ?Instructions ?Recorded ?Confirmed ?Last Taken ?Type apixaban 5 mg tablet (Eliquis) mg 10/04/24 10/04/24 History atorvastatin 80 mg tablet mg 12/06/24 Unknown History clopidogrel 75 mg tablet mg 12/06/24 Unknown History metoprolol succinate 25 mg mg PO 12/06/24 Unknown History tablet,extended release 24 hr omeprazole 40 mg capsule,delayed mg 12/06/24 Unknown History release Allergies Allergy/AdvReac Type Severity Reaction Status Date / Time iodine Allergy Severe Anaphylaxis Verified 10/04/24 15:04 acetaminophen (From Vicodin) Allergy Rash Verified 10/04/24 15:04 amoxicillin Allergy Rash Verified 10/04/24 15:04 hydrocodone (From Vicodin) Allergy Rash Verified 10/04/24 15:04 shellfish derived Allergy Rash Verified 10/04/24 15:04 Sulfa (Sulfonamide Allergy Rash Verified 10/04/24 15:04 Antibiotics) Review of Systems 2 Review of Systems: All systems reviewed & are unremarkable except as noted in HPI and below Constitutional: Constitutional: Reports no additional constitutional complaints ENT: Reports system reviewed and no additional complaints, except as documented Cardiovascular: Cardiovascular: Reports no additional cardiovascular complaints, Denies chest pain and Denies dyspnea Respiratory: Respiratory: Reports no additional respiratory complaints, Denies chest congestion, Denies cough and Denies dyspnea Musculoskeletal: Musculoskeletal: Reports as per HPI Integumentary/Breasts: Skin/Breast: Reports system reviewed and no additional complaints, except as docu [facility] Past Medical History Medical History COPD (chronic obstructive pulmonary disease) Factor V Leiden mutation DVT (deep venous thrombosis) Pulmonary embolism Surgical History Surgical History History of lung biopsy Family History Family History Father HLD (hyperlipidemia) Hypertension Dementia Grandparent Acute myocardial infarction Sibling Diabetes mellitus Skin cancer Mother COPD (chronic obstructive pulmonary disease) Social History Social History Social History: History of tobacco abuse Smoking packs per day: 1 Smoking cigarettes per day: 20.0 Years smoked: 48 Smoking pack-years: 48.00 Smoking status: Current every day smoker Tobacco type: cigarettes Second hand tobacco smoke exposure: Yes Additional smoking assessment comments: states started smoking at age 15 Comments At the time of my signature, I reviewed and agree with the nursing past medical, surgical, social, and family history. There is no relevant family history pertinent to the patient complaint. Exam 2 Const: General: cooperative, healthy appearing, comfortable, no acute distress, well developed, alert and well nourished Nutritional Appearance: w ell nourished Orientation/consciousness: patient oriented x3 Limitations: no limitations HENMT: Head: normal to inspection Eyes: General: appearance normal, both eyes and all related structures A lignment and Position: alignment normal Neck: Neck: normal visual inspection, full ROM, no lymphadenopathy and no meningeal signs Chest: Chest palpation & inspection: normal inspection of the chest Chest/axillae images: 1. Tenderness to palpation without erythema, ecchymosis. No swelling noted. Resp: Effort & Inspection: normal respiratory effort and able to speak in complete sentences Auscultation: clear to auscultation bilaterally, no crackles, no rales, no rhonchi and no wheezes Cardio: Rate: regular rate Rhythm: regular rhythm Skin: General skin exam: normal color and no rashes or lesions noted Neuro: General: patient oriented x3, gait normal, moves all extremities and no meningeal signs Cognition (Neuro): normal cognition Speech: normal speech Gait exam (Neuro): Normal gait present Extrem: General: normal to inspection, full ROM, capillary refill normal and normal gait Psych: Appearance: grossly normal and well kempt Mental Status: mental status grossly normal Speech and movement: Normal speech and movement present and Clear speech present Affect: normal affect Attitude: cooperative Course Course Level of Care: Express Care Visit Vital Signs Vital signs: Vital Signs Temperature 97.5 F L 12/06/24 08:34 Pulse Rate 83 12/06/24 08:34 Respiratory Rate 20 12/06/24 08:34 Blood Pressure 127/71 12/06/24 08:34 Pulse Oximetry 100 12/06/24 08:34 Oxygen Delivery Room Air 12/06/24 08:34 Temperature 97.5 F L 12/06/24 08:34 Pulse Rate 83 12/06/24 08:34 Respiratory Rate 20 12/06/24 08:34 Blood Pressure 127/71 12/06/24 08:34 Pulse Oximetry 100 12/06/24 08:34 Oxygen Delivery Room Air 12/06/24 08:34 Reviewed Medical Decision Making MDM Narrative Medical decision making narrative: Patient sitting comfortably in exam room. Nontoxic, vitals stable. Patient in no acute distress Patient presents for right lateral and anterior rib discomfort after leaning over a semi to pull on a tarp and feeling his ribs ?cracking. ? X-ray is negative. Patient appropriate for outpatient treatment and follow-up Discharge instructions reviewed with patient, as well as provided in writing per nursing staff. The instructions also include specific and strict return/GO TO THE ER as well as f/u information. All questions have been answered, and the patient deny any further questions with discharge and discharge plan. Some parts of this dictation were generated by voice recognition software and may contain typographical and/or grammatical inaccuracies. Differential Diagnosis Differential Diagnosis: Costochondritis, rib fracture, pleurisy, rib contusion Medical Records Medical records reviewed: Yes I reviewed the external patient's medical records. Vital Signs Vital Signs: Vital Signs Temperature 97.5 F L 12/06/24 08:34 Pulse Rate 83 12/06/24 08:34 Respiratory Rate 20 12/06/24 08:34 Blood Pressure 127/71 12/06/24 08:34 Pulse Oximetry 100 12/06/24 08:34 Oxygen Delivery Room Air 12/06/24 08:34 Temperature 97.5 F L 12/06/24 08:34 Pulse Rate 83 12/06/24 08:34 Respiratory Rate 20 12/06/24 08:34 Blood Pressure 127/71 12/06/24 08:34 Pulse Oximetry 100 12/06/24 08:34 Oxygen Delivery Room Air 12/06/24 08:34 Reviewed Lab Data Lab results reviewed: Yes I reviewed the patient's lab results. Labs: Reviewed Imaging Data Radiologist's impression: EXAMINATION: [id number] DATE: 12/06/2024 09:12 INDICATION: Right rib pain. TECHNIQUE: A frontal view of the chest and 2 views on 4 radiographs of the right ribs were obtained. COMPARISON: Chest 2 views 10/04/2024, right rib radiographs 01/10/2023 FINDINGS: There is mild scarring at the lung apices. There are staple lines in right lung. Calcified lung nodules are consistent with old granulomatous disease. No pleural effusion or pneumothorax. The heart size is normal. There are old healed fractures of right third-fifth ribs. There is a filter in the inferior vena cava. IMPRESSION: 1. Stable mild scarring at the lung apices. 2. No acute rib fracture. Critical Care Time Critical Care Time Critical Care Time: No Discharge Plan Discharge Clinical Impression: Pain in rib Patient Disposition: Home, Self-Care Condition: Stable Instructions: Rib Contusion (ED) Additional Instructions: take Tylenol as needed for pain apply ice every 2-3 hours for 15-20 minutes while awake. It is extremely important that you take 10 deep breaths every hour while awake. Follow-up with your primary care provider if symptoms are not improving and 1 week for new or worsening symptoms please proceed to the nearest emergency room Patient Language: South Korean Prescriptions: No Action atorvastatin 80 mg tablet clopidogrel 75 mg tablet omeprazole 40 mg capsule,delayed release(DR/EC) metoprolol succinate 25 mg tablet extended release 24 hr PO albuterol sulfate 2.5 mg /3 mL (0.083 %) solution for nebulization 2.5 mg inhalation Q6H PRN (Reason: shortness of breath or wheezing) Qty: 75 0RF Eliquis 5 mg tablet Follow-up/Referrals: PHYSICIAN NOT ON STAFF,NONSTAFF [Primary Care Provider] - Stand Alone Forms: Work/School Release IP Time of Disposition: 09:23
--- OUTSIDE RECORDS SUMMARY | 2024-12-06 09:05 | XMS_ITS | Referral Summary ---
Author Organization [facility] Address [address] [place] [address] Care Team Providers Care Crude Oil Driver Name Role Phone Niles Saavedra DO Primary Care Provider [phone] Source Comments [facility],non-owned Affiliates and Associated Physician Practices is amultiple site organization consisting of ambulatory clinics and hospital sitesin [place], [place], [place] and [place]. This disclosure is being madepursuant to the Care Everywhere program and may not contain all information available regarding this patient. Last updated 18.[facility] Allergies No known active allergies Social History Tobacco Use Types Packs/Day Years Used Date Smoking Tobacco: Never Assessed Sex and Gender Information Value Date Recorded Sex Assigned at Not on file Gender Identity Not on file Sexual Orientation Not on file Plan of Treatment Not on file Care Teams Crude Oil Driver Relationship Specialty Start Date End Date Niles Saavedra DO [address] [place] [address] [address] [place] [address] PCP - General Family Medicine 11/28/20
--- OUTSIDE RECORDS SUMMARY | 2024-12-06 09:05 | XMS_ITS | Patient Health Summary ---
Author Organization [facility] [employer] Address [address] [place] [address] Care Team Providers Care Respiratory Therapy Director Name Role Phone QuentinBrad lopesivabridgett Sergei Primary Care Provider [phone] Note from [facility],non-owned Affiliates and Associated Physician Practices is amultiple site organization consisting of ambulatory clinics and hospital sitesin [place], [place], [place] and [place]. This disclosure is being madepursuant to the Care Everywhere program and may not contain all information available regarding this patient. Last updated 18.[facility] [employer] Allergies No known active allergies Social History Tobacco Use Types Packs/Day Years Used Date Smoking Tobacco: Never Assessed Sex and Gender Information Value Date Recorded Sex Assigned at Not on file Gender Identity Not on file Sexual Orientation Not on file Procedures * MRI PROSTATE W 3D WWO CONTRAST(Performed 11/28/2020) Performed for Elevated PSA * CREATININE - POCT INTERFACED(Performed 11/28/2020) Results * MRI PROSTATE W 3D WWO CONTRAST (11/28/2020 8:44 AM CRIMINAL JUDGE) Anatomical Region Laterality Modality Pelvis Magnetic Resonan ce 11/28/2020 12:0 5 PM CRIMINAL JUDGE Impressions 11/28/2020 12:19 PM CRIMINAL JUDGE PI-RADS 1 PIRADS v2 Assessment Categories PIRADS 1 - Very low (clinically significant cancer is highly unlikely to be present) PIRADS 2 - Low (clinically significant cancer is unlikely to be present) PIRADS 3 - Intermediate (the presence of clinically significant cancer is equivocal) PIRADS 4 - High (clinically significant cancer is likely to be present) PIRADS 5 - Very high (clinically significant cancer is highly likely to be present) *Reading Radiologist: Roc Hunt on 11/28/2020 at 12:19 PM Narrative 11/28/2020 12:19 PM CRIMINAL JUDGE MRI PROSTATE WITH AND WITHOUT CONTRAST HISTORY: Elevated PSA TECHNIQUE: Multiparametric images of the prostate are obtained on a 3T MRI. Dynamic contrast enhanced (DCE) imaging performed with Dotarem 15 cc IV contrast. 3D reconstructions were performed on independent workstation. FINDINGS: Comparison: None Dimensions and Volume: 4.0 x 4.8 cm axial by 3.7 cm craniocaudal, estimated volume 45 cc Transition Zone Description: Normal Peripheral Zone Description: Normal Lesions: None Seminal Vesicles: Normal Khari Disease: None Neurovascular Bundles: Normal Prostate Margin: Normal Bones: Normal Other Pelvic Organs: Normal Procedure Note Roc Hunt MD - 11/28/2020 MRI PROSTATE WITH AND WITHOUT CONTRAST HISTORY: Elevated PSA TECHNIQUE: Multiparametric images of the prostate are obtained on a 3T MRI. Dynamic contrast enhanced (DCE) imaging performed with Dotarem 15 cc IV contrast. 3D reconstructions were performed on independent workstation. FINDINGS: Comparison: None Dimensions and Volume: 4.0 x 4.8 cm axial by 3.7 cm craniocaudal, estimated volume 45 cc Transition Zone Description: Normal Peripheral Zone Description: Normal Lesions: None Seminal Vesicles: Normal Khari Disease: None Neurovascular Bundles: Normal Prostate Margin: Normal Bones: Normal Other Pelvic Organs: Normal IMPRESSION PI-RADS 1 PIRADS v2 Assessment Categories PIRADS 1 - Very low (clinically significant cancer is highly unlikely to be present) PIRADS 2 - Low (clinically significant cancer is unlikely to be present) PIRADS 3 - Intermediate (the presence of clinically significant cancer is equivocal) PIRADS 4 - High (clinically significant cancer is likely to be present) PIRADS 5 - Very high (clinically significant cancer is highly likely to be present) *Reading Radiologist: Rco Hutn on 11/28/2020 at 12:19 PM Ryan Dumont MD MR ORDERABLES * CREATININE - POCT INTERFACED (11/28/2020 7:54 AM CRIMINAL JUDGE) Creatinine POCT 1.11 0.70 - 1.20 mg/dL 11/28/2020 8:06 AM CRIMINAL JUDGE [facility] Blood BLOOD SPECIMEN / Unknown 11/28/2020 7:54 AM CRIMINAL JUDGE 11/28/2020 8:06 AM CRIMINAL JUDGE Ryan Dumont MD LAB - POINT OF CARE ORDERABLES [facility] [address] [place] [address] Care Teams Respiratory Therapy Director Relationship Specialty [place] [address] [address] PCP - General Family Medicine 11/28/20
--- OUTSIDE RECORDS SUMMARY | 2024-12-06 09:05 | XMS_ITS | Referral Summary ---
Author Organization [facility] [address] Address [address] [place] [address] Care Team Providers Care Nursing Admin Name Role Phone Ghulam Chung MD Unavailable [phone] Jaron Bryant MD Unavailable Niles Saavedra DO Unavailable [phone] Niles Saavedra DO Primary Care Provider + Allergies Active Allergy Reactions Criticality Noted Date Comments Azithromycin Dizziness High Reaction: DIZZINESS, Iodine Nausea only,Vomiting Reaction: NAUSEA, VOMITING, Penicillins Nausea only,Vomiting Reaction: NAUSEA, VOMITING, Propoxyphene-Acetaminop hen Itching Reaction: ITCHING Sulfa (Sulfonamide Antibiotics) Nausea only,Vomiting Reaction: NAUSEA, VOMITING, Medications umeclidinium-v ilanterol (ANORO ELLIPTA) 62.5-25 mcg/actuation blister with device Inhale 1 puff daily 1 each 9 Active Additional Information Patient not taking.Reported on 08/16/2024 albuterol HFA (PROVENTIL HFA,VENTOLIN HFA,PROAIR HFA) 90 mcg/actuation inhaler Inhale 2 puffs every 6 (six) hours as needed for wheezing 1 Inhaler 9 Active tiZANidine (ZANAFLEX) 4 mg tablet Take 1 tablet (4 mg total) by mouth every 6 (six) hours as needed (To relax muscles) Collaborating physician Evelio Claire MD 20 tablet 1 Active apixaban (ELIQUIS) 5 mg tablet Take 1 tablet (5 mg total) by mouth 2 (two) times a day 180 tablet 3 4 Active atorvastatin (LIPITOR) 80 mg tablet Take 1 tablet (80 mg total) by mouth nightly 90 tablet 3 4 Active clopidogreL (PLAVIX) 75 mg tabletIndicati ons:Thrombosis Prevention after PCI Take 1 tablet (75 mg total) by mouth daily 90 tablet 3 4 Active metoprolol XL (TOPROL-XL) 25 mg extended release tablet Take 1 tablet (25 mg total) by mouth daily 90 tablet 3 4 Active omeprazole (PriLOSEC) 40 mg capsule Take 1 capsule (40 mg total) by mouth daily 30 capsule 11 4 08/16/20 Active Active Problems Problem Noted Date Diagnosed Date Coronary artery disease invo lving ruby coronary artery of ruby heart without angina pectoris 12/19/2023 Hyperlipidemia 12/19/2023 Tobacco dependence 12/19/[address] elevation myocardial infarction (STEMI) 11/20/2023 Heart attack 11/20/2023 Abdominal wall pain 03/23/2021 Social History Tobacco Use Types Packs/Day Years Used Date Smoking Tobacco: Every Day Cigarettes 1 20 Smokeless Tobacco: Never Alcohol Use Standard Drinks/Week Comments Yes 5 (1 standard drink = 0.6 oz pur e alcohol) [facility] Utilities Answer Date Recorded In the past 12 months has [employer], gas, oil, or water [employer] threatened to shut off services in your home? No 11/24/2023 Social Connection and Isolat ion Panel [NHANES] Answer Date Recorded In a typical week, how many times do you talk on the phone with family, friends, or neighbors? More than three times a week 11/24/2023 How often do you get togethe r with friends or relatives? More than three times a week 11/24/2023 How often do you attend chur ch or gnosticism services? Never 11/24/2023 Do you belong to any clubs o r organizations such as evangelical groups, unions, fraternal or athletic groups, or school groups? Yes 11/24/2023 How often do you attend meet ings of the clubs or organizations you belong to? More than 4 times per year 11/24/2023 Are you , , di vorced, , never , or living with a partner? Living with partner 11/24/2023 Overall Financial Resource Strain (CARDIA) Answe r Date Recorded How hard is it for you to pa y for the very basics like food, housing, medical care, and heating? Not hard at all 11/24/2023 Hunger Vital Sign Answer Date Recorded Within the past 12 months, y ou worried that your food would run out before you got the money to buy more. Never true 11/24/19 24 Within the past 12 months, t he food you bought just didn't last and you didn't have money to get more. Never true 11/24/2023 PRAPARE - Transportation Answer Date Re corded In the past 12 months, has l ack of transportation kept you from medical appointments or from getting medications? No 10/28 In the past 12 months, has l ack of transportation kept you from meetings, work, or from getting things needed for daily living? No 11/24/2023 Housing Stability Vital Sign Answer Jb e Recorded In the last 12 months, was t here a time when you were not able to pay the mortgage or rent on time? No 11/24/2023 In the last 12 months, how many places have you lived? 1 11/24/2023 In the last 12 months, was t here a time when you did not have a steady place to sleep or slept in a fdc (including now)? No 11/24/2023 Personal Safety Answer Date Recorded Have you ever been in or are you currently in a harmful physical or emotional relationship or is someone making you feel afraid or unsafe? Denies 11/20/2023 Sex and Gender Information Value Date Recorded Sex Assigned at Not on file Legal Sex Male 6:21 PM PEDIATRIC LPN Gender Identity Not on file Sexual Orientation Not on file Last Filed Vital Signs Vital Sign Reading Time Taken Comments Blood Pressure 116/66 08/16/2024 2:33 PM PEDIATRIC LPN Pulse 76 08/16/2024 2:33 PM PEDIATRIC LPN Temperature 36.5 C (97.7 F) 11/23/2023 12:05 PM PEDIATRIC LPN Respiratory Rate 18 11/23/2023 12:05 PM PEDIATRIC LPN Oxygen Saturation 99% 08/16/2024 2:33 PM PEDIATRIC LPN Inhaled Oxygen Concentration - - Weight 65.3 kg (144 lb) 08/16/2024 2:33 PM PEDIATRIC LPN Height 172.7 cm (5' 8 ) 08/16/2024 2:33 PM PEDIATRIC LPN Body Mass Index 21.9 08/16/2024 2:33 PM PEDIATRIC LPN Plan of Treatment Not on file Medical Devices Implanted Type Area Architectural Design Professor Device Identifier Shelf Expiration Date Model / Serial / Lot Medtronic Card Vasc Surgery 3.0 X 30mm [place] Rx Coronary Stent [id number] - [id number] - [id number] Implanted:Qty : 1 on 11/20/2023 by Roger Stone MD at [facility] Stent Left: Circumflex Coronary Artery Medtronic Card Vasc Surgery 06/19/2026 [id number] / [id number] / [id number] [employer]sem Angio-Seal Vip Bon[place]-Plus 8fr .038in 70cm Hemostatic Latex Free [id number] - [id number] - [id number] Implanted:Qty : 1 on 11/20/2023 by Roger Stone MD at [facility] Vascular Closure Device N/A: Common Femoral Artery [employer] Bassem 08/10/2024 [id number] / [id number] / [id number] Insurance [id number] [place] [address] PPO [facility] H[facility]/PPO Address: [facility] [id number] [place] [id number] [facility] PPO [facility] Advance Directives For more information, please contact: [phone] * Full Code (Latest Code Status on File) Date Activated Date Inactivated Comments 11/20/2023 1:07 PM 11/23/2023 5:57 PM * Full Code Date Activated Date Inactivated Comments 05/01/2019 1:55 PM 05/05/2019 5:07 PM Care Teams Nursing Admin Relationship Specialty [place] [address] [address] PCP - General Family Medicine 08/09/19 Ghulam Chung MD Consulting Physician Vascular Surgery 05/01/19 Jaron Bryant MD Consulting Physician Urology 05/05/19 [place] [address] [address] Referring Physician Family Medicine 05/05/19
--- OUTSIDE RECORDS SUMMARY | 2024-12-06 09:05 | XMS_ITS | Clinical Summary ---
Author Organization [facility] [place] [address] Address [address] [place] [address] Care Team Providers Care Acid Filler Name Role Phone Ghulam Chung MD Unavailable [phone] Jaron Bryant MD Unavailable Niles Saavedra DO Unavailable [phone] Niles Saavedra DO Primary Care Provider + [...] Diagnosed Date Coronary artery disease invo lving elim ira coronary artery of elim ira heart without angina pectoris 12/19/2023 Hyperlipidemia 12/19/2023 Tobacco dependence 12/19/[address] elevation myocardial infarction (STEMI) 11/20/2023 Heart attack 11/20/2023 Abdominal wall pain 03/23/2021 Medical History Medical History Date Comments Heart attack (HCC) 11/20/2023 Family History Medical History Relation Name Comments Diabetes Brother Dementia Father Heart attack Father Brain Aneurysm Mother COPD Mother No Known Problems Sister 1 Skin cancer Sister 2 Relation Name Status Comments Brother Alive Father Mother Sister 1 Alive Sister 2 Alive Social History Tobacco Use Types Packs/Day Years Used Date Smoking Tobacco: Every Day Cigarettes 1 20 Smokeless Tobacco: Never Alcohol Use Standard Drinks/Week Comments Yes 5 (1 standard drink = 0.6 oz pur e alcohol) [facility] Utilities Answer Date Recorded In the past 12 months has [employer], gas, oil, or water [employer] threatened to shut off services in your [...] week 11/24/2023 How often do you attend [facility] or mu-ism services? Never 11/24/2023 Do you belong to any clubs o r organizations such as mormon groups, unions, fraternal or athletic groups, or [...] place to sleep or slept in a longterm (including now)? No 11/24/2023 Personal Safety Answer Date Recorded Have you ever been in or are you currently in a harmful physical or emotional relationship or is someone making you feel afraid or unsafe? 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 PROCESS OPERATOR Gender Identity Not on file Sexual Orientation Not on file Obstetrics History Last Filed Vital Signs Vital Sign Reading Time Taken Comments Blood Pressure 116/66 08/16/2024 2:33 PM FILM PROCESS OPERATOR Pulse 76 08/16/2024 2:33 PM FILM PROCESS OPERATOR Temperature 36.5 C (97.7 F) 11/23/2023 12:05 PM FILM PROCESS OPERATOR Respiratory Rate 18 11/23/2023 12:05 PM FILM PROCESS OPERATOR Oxygen Saturation 99% 08/16/2024 2:33 PM FILM PROCESS OPERATOR Inhaled Oxygen Concentration - - Weight 65.3 kg (144 lb) 08/16/2024 2:33 PM FILM PROCESS OPERATOR Height 172.7 cm (5' 8 ) 08/16/2024 2:33 PM FILM PROCESS OPERATOR Body Mass Index 21.9 08/16/2024 2:33 PM FILM PROCESS OPERATOR Plan of Treatment Health Maintenance Due Date Last Done Comments Colon Cancer Screening-Colonoscopy 1962 Depression Screening 1962 Hepatitis C Screening 1962 Prostate Cancer Screening-PSA 1962 DTaP/Tdap/Td Vaccine (1 - Tdap) 1973 Hepatitis B Screening 1980 Regular Well Visit/Exam 18-64 1980 Pneumococcal vaccine <65 (1 of 2 - PCV) 1981 Lung Cancer Screening 2012 Zoster Vaccine (1 of 2) 2012 Influenza Vaccine (#1) 2024 Medical Devices Implanted Type Area Burr Filer Device Identifier Shelf Expiration Date Model / Serial / Lot Medtronic Card Vasc Surgery 3.0 X 30mm [employer] [place] Rx Coronary Stent [id number] - [id number] - [id number] Implanted:Qty : 1 on 11/20/2023 by Roger Stone MD at [facility] Stent Left: Circumflex Coronary Artery Medtronic Card Vasc Surgery 06/19/2026 [id number] / [id number] / [id number] [employer] Angio-Seal Vip Bondek-Plus 8fr .038in 70cm Hemostatic Latex Free [id number] - [id number] - [id number] Implanted:Qty : 1 on 11/20/2023 by Roger Stone MD at [facility] Vascular Closure Device N/A: Common Femoral Artery [employer] 08/10/2024 [id number] / [id number] / [id number] Insurance PPO [id number] [place] [address] PPO [employer] [place] [employer] HMO Advance Directives For more information, please contact: [phone] * Full Code (Latest Code Status on File) Date Activated Date Inactivated Comments 11/20/2023 1:07 PM 11/23/2023 5:57 PM * Full Code Date Activated Date Inactivated Comments 05/01/2019 1:55 PM 05/05/2019 5:07 PM Care Teams Acid Filler Relationship Specialty Start [place] [address] [address] [address] PCP - General Family Medicine 08/09/19 Ghulam Chung MD Consulting Physician Vascular Surgery 05/01/19 Jaron Bryant MD Consulting Physician Urology 05/05/19 [place] [address] [address] [address] Referring Physician Family Medicine 05/05/19
--- OUTSIDE RECORDS SUMMARY | 2024-12-06 09:05 | XMS_ITS | Clinical Summary ---
Author Organization [facility] Address [address] [place] [address] Care Team Providers Care Air Conditioning Installer Supervisor Name Role Phone Quentin Aronldobridgett Mai DO Primary Care Provider [phone] Source Comments [facility],non-owned Affiliates and Associated Physician Practices is amultiple site organization consisting of ambulatory clinics and hospital sitesin [place], [place], [place] and [place]. This disclosure is being madepursuant to the Care Everywhere program and may not contain all information available regarding this patient. Last updated 18.[facility] [place] Allergies No known active allergies Social History Tobacco Use Types Packs/Day Years Used Date Smoking Tobacco: Never Assessed Sex and Gender Information Value Date Recorded Sex Assigned at Not on file Gender Identity Not on file Sexual Orientation Not on file Plan of Treatment Health Maintenance Due Date Last Done Comments COLOGUARD (AGES 45-75) - COL ON CA SCREENING 1962 COLON MONITORING 1962 COLONOSCOPY - COLON CA SCREENING 1962 CT COLONOGRAPHY - COLON CA SCREENING 1962 Colorectal Cancer Screening 1962 FIT - COLON CA SCREENING 1962 FLEX SIG - COLON CA SCREENING 1962 LIPID TESTING 1962 HIV SCREENING 1977 HEPATITIS C SCREENING 10/05/1980 DTAP/TDAP/TD VACCINES (1 - Tdap) 1981 PNEUMOCOCCAL VACCINE 50+ (1 of 1 - PCV) 2012 ZOSTER VACCINE (1 of 2) 2012 COVID-19 VACCINE ( - 2023-2 5 season) 2024 INFLUENZA VACCINE (#1) 2024 DEPRESSION SCREENING 09/26/2024 Respiratory Syncytial Virus (RSV) Vaccine Pt: or over 60 yrs (1 - 1-dose 75+ series) 2037 HEPATITIS B VACCINE Aged Out No longe r eligible based on patient's age to complete this topic HIB VACCINE Aged Out No longer eligi ble based on patient's age to complete this topic HPV VACCINE Aged Out No longer eligi ble based on patient's age to complete this topic MENINGOCOCCAL (Group B) VACC INE SHARED DECISION-MAKING Aged Out No longer eligibl e based on patient's age to complete this topic MENINGOCOCCAL GROUPS A/C/Y/W VACCINE Aged Out No longer eligible b ased on patient's age to complete this topic PNEUMOCOCCAL VACCINE Aged Out No long er eligible based on patient's age to complete this topic Care Teams Air Conditioning Installer Supervisor Relationship Specialty Start Date End Date Niles Saavedra DO [address] [place] [address] PCP - General Family Medicine 11/28/20
--- OUTSIDE RECORDS SUMMARY | 2024-12-06 09:05 | XMS_ITS | Clinical Summary ---
Author Organization [facility] Address [address] [place] [address] Care Team Providers Care Stock Replenisher Name Role Phone Unavailable Primary Care Provider Unavailabl e Social History Tobacco Use Types Packs/Day Years Used Date Smoking Tobacco: Never Assessed Sex and Gender Information Value Date Recorded Sex Assigned at Not on file Legal Sex Male 12:26 PM CUTTING TORCH OPERATOR Gender Identity Not on file Sexual Orientation Not on file Plan of Treatment Health Maintenance Due Date Last Done Comments DTAP/TDAP/TD VACCINES (1 - Tdap) 1981 COLORECTAL SCREENING 2007 Colorectal Cancer Screening 2007 FIT-DNA Q 3 years 2007 FIT/FOBT Q 1 year 2007 Flex Sig/CT Colonography Q 5 years 2007 ZOSTER VACCINE (1 of 2) 2012 INFLUENZA VACCINE (#1) 2024 RSV VACCINE (60+ or ) (1 - 1-dose 75+ series) 2037 PNEUMOCOCCAL VACCINE 0-49 YEARS Aged Out No longer eligible based on patient's age to complete this topic Insurance [employer] CHOICE POS II
== END 2024-12-06 09:30 | disposition home or self-care (01) ==
PROVIDERS: Emergency Provider Nurse Practitioner
DX: R07.89 Other chest pain (principal); F17.210 Nicotine dependence, cigarettes, uncomplicated; J44.9 Chronic obstructive pulmonary disease, unspecified; D68.51 Activated protein C resistance; Z86.718 Personal history of other venous thrombosis and embolism; Z86.711 Personal history of pulmonary embolism
CPT/HCPCS: 71101; 99213; G0463